=== PATIENT | female | born 1990 | race Two or more races ===

== ENCOUNTER 2024-11-08 21:46 | Emergency (ER) | payer BC, SELFPAY ==
--- NOTE | 2024-11-08 21:48 | EKG_ITS ---
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
[2024-11-08 22:04] VITALS: BP 161/104; BP 169/118; PULSE 104; RESP 16; TEMP 37.2; O2SAT 98; BMI 48.6
--- NOTE | 2024-11-08 22:28 | XR_ITS ---
Examination: PA chest single view TECHNIQUE: Upright PA chest single view Date and time: November 08, 2024 10:34 PM Comparison April 25, 2009 INDICATIONS: Chest pain beginning 2 hours ago. FINDINGS: Normal heart size The lungs are clear. The osseous structures are intact IMPRESSION: No active disease
--- NOTE | 2024-11-08 22:28 | XR_ITS ---
Examination: CT brain head without contrast. 2-D sagittal coronal reconstructions Date and time of exam:November 08, 2024, 10:56 PM INDICATIONS: Slurred speech and dizziness weakness and numbness in the left arm beginning 3 days ago CTDI: vol (mGy):54.3 DLP: (mGycm):1022 Technique: Multiple CT axial sections of the brain have been obtained, 5 mm slice thickness. Contrast has not been administered. 2-D sagittal, coronal reconstructions have been obtained Low dose protocols were performed. One or more of the following dose reduction techniques were used; automated exposure control, adjustment of the mA and/or KV according to patient size, use of iterative reconstruction technique. Findings: No significant ventricular enlargement. Intra-axial or extra-axial hemorrhage density is not seen. No mass effect or midline shift Basal cisterns are not remarkable. Fourth ventricle is midline. Cranial vault intact. Impression: Negative for acute hemorrhage, mass effect or midline shift As clinically warranted, brain MRI follow-up would best assess for demyelinating disease, acute ischemic change
--- NOTE | 2024-11-08 22:33 | PC.NURSE ---
stroke consult Case # [id number]
--- NOTE | 2024-11-08 22:35 | PD.EDDIZZY ---
ED Dizzyness RME/HPI General Chief Complaint: Dizziness Stated Complaint: DIZZINESS Time Seen by Provider: 11/08/24 22:27 Arrival date/time: 11/08/24 21:46 34F with no significant PMH presents to ED 2 days of dizziness w/o trigger. Patient also had 2 episodes of slurred speech where she tried to get the words out, but she couldn't. This started around 10 AM yesterday. Patient also had some CP that resolved, as well as L-sided facial numbness. Patient denies anxiety and drug/alcohol use. No recent surgery. Limitations: no limitations Related Data Previous Rx's ?Medication ?Instructions ?Recorded tramadol 50 mg tablet (Ultram) 1 - 2 tab PO Q6HR PRN PAIN #20 tabs 02/18/17 Allergies Allergy/AdvReac Type Severity Reaction Status Date / Time No Known Allergies Allergy Verified 11/08/24 21:48 Review of Systems Review of Systems Systems Reviewed: All systems reviewed, normal except as documented Constitutional Constitutional: Reports system reviewed and no additional complaints, except as documented, Denies fever(s) and Denies headache(s) ENT Ears, Nose, Mouth, and Throat: Reports as per HPI, Denies disequilibrium, Denies headache(s), Reports vertigo and Reports other (slurred speech) Cardiovascular Cardiovascular: Reports system reviewed and no additional complaints, except as documented, Denies chest pain and Denies dyspnea Respiratory Respiratory: Reports system reviewed and no additional complaints, except as documented, Denies cough and Denies dyspnea Gastrointestinal Gastrointestinal: Reports system reviewed and no additional complaints, except as documented, Denies abdominal pain, Denies nausea and Denies vomiting Musculoskeletal Musculoskeletal: Reports numbness Neurologic Neurologic: Reports system reviewed and no additional complaints, except as documented, Reports as per HPI, Denies confusion, Denies disequilibrium, Denies headache(s), Reports numbness and Reports vertigo Psychiatric Psychiatric: Denies confusion Past Medical History Social History SMOKING STATUS: Never smoker ED Exam General Limitations: Present no limitations General appearance: Present alert and in no apparent distress Head Head exam: Present atraumatic Eye Eye exam: Present normal appearance, PERRL and EOMI ENT ENT exam: Present normal exam, normal oropharynx and mucous membranes moist Neck Neck exam: Present normal inspection, full ROM and trachea midline Chest Chest inspection: Present normal inspection and symmetric chest wall rise Respiratory Respiratory exam: Present normal lung sounds bilaterally Cardiovascular Cardiovascular exam: Present regular rate, normal rhythm and normal heart sounds Abdominal Exam Abdominal exam: Present soft and normal bowel sounds Extremities Exam Extremities exam: Present normal inspection and full ROM Back Exam Back exam: Present normal inspection and full ROM Neurological Exam Neurological exam: Present alert, oriented X3, CN II-XII intact and other (L facial reduced sensation) Psychiatric Psychiatric exam: Present normal affect and normal mood Skin Skin exam: Present warm, dry, intact and normal color Course Quality Measures none Orders Category Date Time Status EKG (ED ONLY) *Do not use* NOW Care 11/08/24 21:49 Completed Insert IV NOW Care 11/08/24 22:[address] head/brain wo con Stat Exams 11/08/24 22:28 Completed EKG (ED Only) Stat Exams 11/08/24 21:48 Draft XR chest 1V portable Stat Exams 11/08/24 22:28 Completed Alcohol, Blood Medical Stat Lab 11/08/24 22:32 Completed B-Type Natriuretic Peptide Stat Lab 11/08/24 22:32 Completed CBC Stat Lab 11/08/24 22:32 Completed Comprehensive Metabolic Panel Stat Lab 11/08/24 22:32 Completed Drug Screen,Urine Stat Lab 11/08/24 22:50 Completed HCG Qualitative,Urine Stat Lab 11/08/24 22:50 Completed Magnesium Stat Lab 11/08/24 22:32 Completed Partial Thromboplastin Time Stat Lab 11/08/24 22:32 Completed Prothrombin Time with INR Stat Lab 11/08/24 22:32 Completed Troponin I Stat Lab 11/08/24 22:32 Completed Troponin I Stat Lab 11/09/24 01:28 Ordered Urinalysis Stat Lab 11/08/24 22:50 Completed Vital Signs Vital signs: Vital Signs Temperature 98.9 F 11/08/24 22:04 Pulse Rate 104 H 11/08/24 22:04 Respiratory Rate 16 11/08/24 22:04 Blood Pressure 169/118 H 11/08/24 22:04 Pulse Oximetry (%) 98 11/08/24 22:04 Oxygen Delivery Method Room Air 11/08/24 22:04 O2 at 98% on RA and WNLs Dizziness MDM Narrative MDM Narrative:: 34F with no significant PMH presents to ED 2 days of dizziness w/o trigger. Patient also had 2 episodes of slurred speech where she tried to get the words out, but she couldn't. This started around 10 AM yesterday. Patient also had some CP that resolved, as well as L-sided facial numbness. Patient denies anxiety and drug/alcohol use. No recent surgery. Physical exam reveals normal pupil response and EOM. CN II-XII grossly intact. Some L-sided facial numbness. Gait normal. Normal WOB. Patient is afebrile, calm, and alert. Speech currently intact. EKG is NSR. CT unremarkable. Lab work unremarkable. Spoke to IM Resident reporting to Dr. Casarez, who states patient can have MRI done in ED and does not need to be admitted. Patient AMA'd because she didn't want to wait for MRI (per neurologist recommendations) and will return in AM. Patient data External records reviewed:: [facility] previous records Clinical information provided by:: patient Social determinants that could affect healthcare access:: none Patient has the following chronic illnesses:: none How is presenting disease/condition affected by chronic disease/condition?: no chronic disease Evaluation data The following diagnostics were reviewed and interpreted by me:: lab results, radiology exam(s) and EKG tracing(s) Lab and/or radiology exams considered but not ordered:: ordered Interpretation Summary: above Medications / Prescriptions Medications or Prescriptions considered but not ordered:: not ordered Medication administrations:: n/a Consultations Consultation(s) initiated? (list below): Yes Diagnosis Dizziness Differential Diagnosis: adverse reaction to drug, benign paroxysmal positional vertigo, orthostatic hypotension, vertebral basilar insufficiency, cerebrovascular accident, acute vestibular neuronitis and transient cerebral ischemia Most likely diagnosis given after review of the tests above:: Dizziness Admission Indicated Admission indicated?: not indicated Admission Request Was there a request for admission?: Yes Admission Attestation Admission request attestation: Discussed case with [Dr. Casarez] from Hospitalist service regarding admission. Discussed patients ED course, exam findings, labs, and radiology results. The Hospitalist [declines] to accept the patient for admission. Disposition Plan Disposition Plan: other (specify) (AMA'd) Discharge Plan Plan Patient Disposition: Left Against Medical Advice Prescriptions/Referrals Prescriptions/Med Rec: No Action tramadol [Ultram] 50 MG tablet 1 - 2 tab PO Q6HR PRN (Reason: PAIN) Qty: 20 0RF Rx Instructions: FOR PAIN, NOT TO EXCEED 8 TABS IN 24 HRS Referrals: Aleida Mendez MD [Primary Care Provider] - In 1 week Problem List Clinical Impression: Dizziness Patient/Caregiver Discharge Instructions Print Language: Wolof PA/CLOTH DOUBLING MACHINE OPERATOR Supervising Physician PA/CLOTH DOUBLING MACHINE OPERATOR Supervising Physician: Dr. Berrios
[2024-11-08 22:48] LABS: Basophils % (Auto) 0 % (0-2.5); Eosinophils # (Auto) 0.2 Thou/mm3 (0.0-0.5); Eosinophils % (Auto) 2 % (0-10); Hematocrit 43.4 % (36.0-46.0); Hemoglobin 15.2 g/dL (12.0-16.0); Immature Granulocytes % (Auto) 0 % (0-0); Immature Granulocytes Auto 0.05 Thou/mm3 (0.00-0.00); Lymphocytes # (Auto) 3.2 Thou/mm3 (1.0-4.8); Lymphocytes % (Auto) 24 % (10-50); Mean Corpuscular Hemoglobin 29.7 pg (25.0-35.0); Mean Corpuscular Volume 85 fL (80-100); Monocytes # (Auto) 0.9 Thou/mm3 (0.0-0.8); Monocytes % (Auto) 7 % (0-12); Neutrophils % (Auto) 68 % (37-80); Nucleated Red Blood Cell % 0 /100 WBC (0); Platelet Count 199 Thou/mm3 (140-440); RDW Standard Deviation 38.9 fL (36.4-46.3); Red Blood Count 5.11 Miln/mm3 (4.00-5.20); White Blood Count 13.4 Thou/mm3 (3.6-11.0)
[2024-11-08 22:57] LABS: INR 0.9 (0.9-1.3); Partial Thromboplastin Time 27.9 Seconds (22.0-36.0); Prothrombin Time 10.3 Seconds (9.0-12.2)
[2024-11-08 22:59] LABS: B-Type Natriuretic Peptide < 20 pg/mL (0-100)
[2024-11-08 23:02] LABS: Alanine Aminotransferase 30 U/L (10-49); Albumin, Serum 4.8 gm/dL (3.5-5.0); Albumin/Globulin Ratio 1.7 (1.2-2.2); Alcohol, Blood Medical < 3.0 mg/dL (0-10.0); Alkaline Phosphatase 73 U/L (46-116); Anion Gap 8 (7-16); Aspartate Amino Transferase 27 U/L (0-34); BUN/Creatinine Ratio 11 Ratio (12-20); Bilirubin,Total 0.5 mg/dL (0.3-1.2); Blood Urea Nitrogen 12 mg/dL (9-23); Calcium 9.8 mg/dL (8.3-10.6); Calcium (Corrected) 9.8 mg/dL (8.5-10.1); Carbon Dioxide 25.8 mMol/L (20.0-31.0); Chloride 104 mMol/L (98-107); Creatinine (Component) 1.1 mg/dL (0.6-1.3); Estimated Creatinine Clearance 92.5 mL/min (>60); Globulin 2.8 gm/dL (2.3-3.5); Glucose 113 mg/dL (74-106); Magnesium 1.9 mg/dL (1.6-2.6); Osmolality,Calculated 276 (275-295); Potassium 4.7 mMol/L (3.4-5.1); Sodium 138 mMol/L (136-145); Total Protein 7.6 gm/dL (5.7-8.2); Troponin I < 0.002 ng/mL (0.0-0.045); eGFR > 60 See Note
[2024-11-08 23:11] LABS: Collection Type, Urine Clean Catch
[2024-11-08 23:15] LABS: HCG Qualitative,Urine Negative
[2024-11-08 23:18] LABS: Amorphous Crystals,Urine Present (Absent); Bacteria,Urine Rare; Bilirubin,Urine Negative (Negative); Blood,Urine Negative (Negative); Clarity,Urine Clear (Clear/Hazy); Color,Urine Colorless (Lt Yel-Yel); Glucose, Urine Negative (Negative); Ketones,Urine Negative (Negative); Leukocyte Esterase,Urine Positive (Negative); Nitrite,Urine Negative (Negative); Protein,Urine Negative (Neg - Trace); RBC,Urine 4 /hpf (0-3); Specific Gravity,Urine 1.008 (1.001-1.035); Squamous Epithelial Cell,Urine 3 /hpf (0-5); Urobilinogen,Urine Negative mg/dL (0.0-1.0); WBC,Urine 1 /hpf (0-5)
[2024-11-08 23:22] LABS: Amphetamine/Methamp Scrn,U Negative (Negative); Barbiturate Screen,Urine Negative (Negative); Benzodiazepines Screen,Urine Negative (Negative); Benzoylecgonine Screen, Ur Negative (Negative); Fentanyl Screen,Urine Negative (Negative); Opiate Screen,Urine Negative (Negative); THC Screen,Urine Negative (Negative)
--- NOTE | 2024-11-09 01:04 | PC.NURSE ---
TELE NEUROLOGIST TALKED TO PT.
[2024-11-09 01:07] VITALS: BP 156/103; PULSE 95; RESP 18; O2SAT 96
--- NOTE | 2024-11-09 01:25 | ESCONSULT_ITS ---
Tele Neuro Consultation Consultation Date 11/09/24 Most Recent Vital Signs Last Vital Signs Temp 98.9 F 11/08/24 22:04 Pulse 95 11/09/24 01:07 Resp 18 11/09/24 01:07 BP 156/103 H 11/09/24 01:07 Pulse Ox 96 11/09/24 01:07 O2 Del Method Room Air 11/09/24 01:07 Laboratory-Coagulation Panel PT 10.3 Seconds (9.0-12.2) 11/08/24 22:32 INR 0.9 (0.9-1.3) 11/08/24 22:32 APTT 27.9 Seconds (22.0-36.0) 11/08/24 22:32 Consultation Narrative [facility] TeleNeurology Consult Services Stat Consult Patient Name:???Aleida Cardona Date of :???1990 Identification Number:??? Date of Service:???11/08/2024 22:33:06 Diagnosis:?G43.819 - Other migraine, intractable, without status migrainosus Impression Aleida Croft is a 34 yo F who presents with dizziness. No focal deficits on exam. Head CT showed no acute intracranial pathology. Favoring migraine w/ aura but cannot exclude CLASS A LINEMAN inflammatory disease or ischemic stroke (both less likely). Recommend the following: - Compazine and benadryl q8 prn for GARCIA - MRI brain w/wo contrast - goal BP is normotension - if neuroimaging unremarkable, okay for discharge with Neurology follow up as outpatient Recommendations: Our recommendations are outlined below. Nursing Recommendations :IV Fluids, avoid dextrose containing fluids, Maintain euglycemia Neuro checks q4 hrs x 24 hrs and then per shift Head of bed 30 degrees Continue with Telemetry Disposition :Neurology will follow Advanced Imaging: Advanced Imaging Deferred because: Non-disabling symptoms as verified by the patient; no cortical signs so not consistent with LVO Metrics: Dispatch Time: 11/08/2024 22:33:06 Callback Response Time: 11/08/2024 22:33:29 Primary Provider Notified of Diagnostic Impression and Management Plan on: 11/09/2024 01:12:44 CT HEAD: I personally reviewed all the CT images that were available to me and it sh owed:?no acute intracranial pathology Imagingno acute intracranial pathology Chief Complaint: dizziness History of Present Illness:Patient is a 34 year old Female. Aleida Croft is a 34 yo F who presents with dizziness. Patient reports intermittent lightheadedness for past few days. Also reports b/l blurry vision, left face and arm numbness, and intermittent slurred speech. Of note, has 5 out of 10 headache. Denies photophobia. Denies history of similar episodes in the past. Past Medical History: ?There is no history of Hypertension Medications: No Anticoagulant use? No Antiplatelet use Reviewed EMR for current medications Allergies:? Reviewed Social History: Smoking: No Alcohol Use: No Drug Use: No Family History: There is no family history of premature cerebrovascular disease pertinent to this consultation ROS : 14 Points Review of Systems was performed and was negative except mentioned in HPI. Past Surgical History: There Is No Surgical History Contributory To Today?s Visit Examination: BP(141/77),?Pulse(72),?Blood Glucose(113) 1A: Level of Consciousness - Alert; keenly responsive?+ 0 1B: Ask Month and Age - Both Questions Right?+ 0 1C: Blink Eyes & Squeeze Hands - Performs Both Tasks?+ 0 2: Test Horizontal Extraocular Movements - Normal?+ 0 3: Test Visual Lai - No Visual Loss?+ 0 4: Test Facial Palsy (Use Grimace if Obtunded) - Normal symmetry?+ 0 5A: Test Left Arm Motor Drift - No Drift for 10 Seconds?+ 0 5B: Test Right Arm Motor Drift - No Drift for 10 Seconds?+ 0 6A: Test Left Leg Motor Drift - No Drift for 5 Seconds?+ 0 6B: Test Right Leg Motor Drift - No Drift for 5 Seconds?+ 0 7: Test Limb Ataxia (FNF/Heel-Mckeon) - No Ataxia?+ 0 8: Test Sensation - Mild-Moderate Loss: Less Sharp/More Dull?+ 1 9: Test Language/Aphasia - Normal; No aphasia?+ 0 10: Test Dysarthria - Normal?+ 0 11: Test Extinction/Inattention - No abnormality?+ 0 NIHSS Score:?1 Spoke with :?ED provider This consult was conducted in real time using interactive audio and video technology. Patient was informed of the technology being used for this visit and agreed to proceed. Patient located in hospital and provider located at home/office setting. Patient is being evaluated for possible acute neurologic impairment and high probability of imminent or life - threatening deterioration.I spent total of 35 minutes providing care to this patient, including time for face to face visit via telemedicine, review of medical records, imaging studies and discussion of findings with providers, the patient and / or family. Dr Scott Phan [facility] For Inpatient follow-up with [facility] physician please call [facility] at . As we are not an outpatient service for any post hospital discharge needs please contact the hospital for assistance. If you have any questions for the [facility] physicians or need to reconsult for clinical or diagnostic changes please contact us via [facility] at .
== END 2024-11-09 01:46 | disposition left against medical advice (07) ==
LOC: SERX 22:43
PROVIDERS: Physician Assistant; Emergency Provider Emergency Medicine; PCP Family Medicine
DX: R42 Dizziness and giddiness (principal)
CPT/HCPCS: 36415; 70450; 71045; 80053; 80307; 80320; 81001; 81025; 83735; 83880; 84484; 85025; 85610; 85730; 93005; 99284; G0480

== ENCOUNTER 2024-11-09 07:51 | Emergency (ER) | payer OTHER, SELFPAY ==
--- NOTE | 2024-11-09 | XR_ITS ---
Examination: MRI brain without intravenous contrast. Date and time of exam: November 09, 2024 0918 hours INDICATIONS: Dizziness episodes with headaches beginning 4 days ago Technique: Multiple axial and sagittal images of the brain obtained. Siemens high-resolution 1.5 Emerald short bore scanners utilized. Sagittal sections, T1-weighted, TR 500, TE 14, are performed. Axial sections proton-density and T2-weighted have been obtained. Inversion recovery axial images, TR 9, 260, TE 111, TI 2500. Diffusion weighted images, axial sections, TR 4800, TE 128, B value 1000 Axial sections, ADC map, TR 4800, TE 128 Findings: Enlargement of the sella turcica is not present. The optic chiasm and infundibular are not remarkable. Prepontine and interpeduncular cisterns are not enlarged. There is no localized enlargement of the medulla or magan. Fourth ventricle and cerebellar tonsils appear normal in position. No subacute area of hemorrhage density is seen. Mass in the cerebellopontine angle region is not evident. Globes symmetrical. Orbital musculature including medial lateral rectus muscles do not exhibit abnormality. Diffusion-weighted images demonstrate no focus of restricted diffusion. Increased white matter signal not seen Mass effect upon the ventricular system is not identified. Impression: Negative for acute hemorrhage mass effect or midline shift No acute infarct No MR findings diagnostic for demyelinating disease Mild chronic ethmoid sinusitis
[2024-11-09 07:53] VITALS: BMI 48.6
[2024-11-09 08:03] VITALS: BP 156/95; PULSE 74; RESP 16; TEMP 37.1; O2SAT 98
[2024-11-09 09:23] LABS: Free T4 (Free Thyroxine) 1.19 ng/dL (0.89-1.76); Thyroid Stimulating Hormone 2.35 uIU/mL (0.55-4.78); Troponin I < 0.002 ng/mL (0.0-0.045)
--- NOTE | 2024-11-09 10:28 | EDNOTE_ITS ---
Neuro Symptoms Deficit-RME/HPI General Chief Complaint: Neuro Symptoms/Deficit Stated Complaint: DIZZINESS SINCE SUN, SENSATIONS DIFFENTIATE Time Seen by Provider: 11/09/24 08:13 Arrival date/time: 11/09/24 07:51 34-year-old female presents the emergency department today for complaints of dizziness since Thursday patient was evaluated last night teleneuro was consulted recommended the patient have an MRI Limitations: no limitations Related Data Previous Rx's ?Medication ?Instructions ?Recorded tramadol 50 mg tablet (Ultram) 1 - 2 tab PO Q6HR PRN P AIN #20 tabs 02/18/17 Allergies Allergy/AdvReac Type Severity Reaction Status Date / Time No Known Allergies Allergy Verified 11/09/24 07:55 Review of Systems Review of Systems Systems Reviewed: All systems reviewed, normal except as documented Constitutional Constitutional: Reports system reviewed and no additional complaints, except as documented, Denies fever(s) and Reports headache(s) Eyes Eyes: Reports system reviewed and no additional complaints, except as documented and Denies blurry vision ENT Ears, Nose, Mouth, and Throat: Reports system reviewed and no additional complaints, except as documented, Reports headache(s), Denies nasal congestion, Denies nasal discharge and Reports vertigo Cardiovascular Cardiovascular: Reports system reviewed and no additional complaints, except as documented, Denies chest pain and Denies dyspnea Respiratory Respiratory: Reports system reviewed and no additional complaints, except as documented, Denies chest congestion, Denies cough and Denies dyspnea Gastrointestinal Gastrointestinal: Reports system reviewed and no additional complaints, except as documented and Denies abdominal pain Integumentary/Breasts Skin/Breast: Reports system reviewed and no additional complaints, except as documented and Denies rash Neurologic Neurologic: Reports system reviewed and no additional complaints, except as documented, Reports as per HPI, Reports headache(s) and Reports vertigo Past Medical History Past Medical History RESPIRATORY: Negative Respiratory Disorders Social History SMOKING STATUS: Never smoker ED Exam General Limitations: Present no limitations General appearance: Present alert and in no apparent distress Head Head exam: Present atraumatic, normocephalic and normal inspection Eye Eye exam: Present normal appearance, PERRL and EOMI; Absent conjunctival injection ENT ENT exam: Present normal exam, normal oropharynx and mucous membranes moist Neck Neck exam: Present normal inspection, full ROM and trachea midline Chest Chest inspection: Present normal inspection and symmetric chest wall rise Respiratory Respiratory exam: Present normal lung sounds bilaterally; Absent respiratory distress Cardiovascular Cardiovascular exam: Present regular rate, normal rhythm and normal heart sounds Abdominal Exam Abdominal exam: Present soft and normal bowel sounds Extremities Exam Extremities exam: Present normal inspection and full ROM Back Exam Back exam: Present normal inspection and full ROM Neurological Exam Neurological exam: Present alert, oriented X3, CN II-XII intact, normal gait and reflexes normal; Absent motor sensory deficit Psychiatric Psychiatric exam: Present normal affect and normal mood Skin Skin exam: Present warm, dry, intact and normal color Course Quality Measures none Orders Category Date Time Status MRI Screening NOW Care 11/09/24 08:13 Completed Consult to Neurology / Tele-Neurology Stat Cons 11/09/24 10:31 Active MR head/brain wo con Stat Exams 11/09/24 Completed A1C [Glycohemoglobin w (eAG)] Stat Lab 11/09/24 08:34 Received Free T4 (Free Thyroxine) Stat Lab 11/09/24 08:34 Completed TSH [Thyroid Stimulating Hormone] Stat Lab 11/09/24 08:34 Completed Troponin I Stat Lab 11/09/24 08:34 Completed Vitamin B12 Stat Lab 11/09/24 08:34 Received Vitamin D 25 Hydroxy Total Stat Lab 11/09/24 08:34 Received Vital Signs Vital signs: Vital Signs Temperature 98.8 F 11/09/24 08:03 Pulse Rate 74 11/09/24 08:03 Respiratory Rate 16 11/09/24 08:03 Blood Pressure 156/95 H 11/09/24 08:03 Pulse Oximetry (%) 98 11/09/24 08:03 Oxygen Delivery Method Room Air 11/09/24 08:03 O2 saturation 98% on room air within normal limits Neuro Symptoms / Deficit MDM Narrative MDM Narrative:: 34-year-old female presents the emergency department today for complaints of dizziness since Thursday patient was evaluated last night teleneuro was consulted recommended the patient have an MRI On exam patient well-appearing patient is not appear ill or toxic patient walks steady gait has no abnormal neurological findings Lab work and imaging obtained no acute emergent findings noted Patient had full cardiac workup yesterday repeated troponin today which came back negative thyroid is normal as well Consultation: I spoke with Dr. mccall and she had a FaceTime call with the patient Patient discharged home in no distress to follow-up with primary care doctor in the next 24 to 48 hours and for any worsening symptoms to return to the ER immediately Patient data External records reviewed:: [facility] previous records Clinical information provided by:: patient Social determinants that could affect healthcare access:: none Patient has the following chronic illnesses:: None How is presenting disease/condition affected by chronic disease/condition?: no chronic disease Evaluation data The following diagnostics were reviewed and interpreted by me:: lab results and radiology exam(s) Lab and/or radiology exams considered but not ordered:: Labs radiology obtain Interpretation Summary: Reviewed by me Medications / Prescriptions Medications or Prescriptions considered but not ordered:: No meds Medication administrations:: No meds Consultations Consultation(s) initiated? (list below): Yes Consultation #1 (Physician, Specialty, Details): Dr Mccall Diagnosis Neuro Differential Diagnosis: subarachnoid hemorrhage, peripheral neuropathy, transient cerebral ischemia and other (Headache, vertigo) Most likely diagnosis given after review of the tests above:: Vertigo Admission Indicated Admission indicated?: not indicated Admission Request Was there a request for admission?: No Disposition Plan Disposition Plan: Discharge Discharge Attestation Discharge Attestation: The patient and all family members were given an opportunity to ask questions and understood the discharge instructions. Discharge instructions specifically effects, indications for sooner follow up or return to the emergency department, and the expected course of current diagnosis. Patient condition: Stable Discharge Plan Plan Patient Disposition: HOME (Self Care) Discharge Disposition comment: Stable Prescriptions/Referrals Prescriptions/Med Rec: No Action tramadol [Ultram] 50 MG tablet 1 - 2 tab PO Q6HR PRN (Reason: PAIN) Qty: 20 0RF Rx Instructions: FOR PAIN, NOT TO EXCEED 8 TABS IN 24 HRS Referrals: Aleida Mendez MD [Primary Care Provider] - 11/10/24 Problem List Clinical Impression: Vertigo Patient/Caregiver Discharge Instructions Education Materials: ED Dizziness, Uncertain Cause Additional Instructions: Please follow up with your primary care doctor in the next 24-48hrs for any worsening symptoms return here immediately Please request referral from your PCP to Dr. Chavis Print Language: Polish Stand Alone Forms: [facility]arly[employer] Award Info., Patient Portal Info Letter PA/FLOORING SALES MANAGER Supervising Physician PA/FLOORING SALES MANAGER Supervising Physician: dr sanchez
[2024-11-09 11:15] LABS: Glucose Estimated Average 111 mg/dL (80-131); Hemoglobin A1C 5.5 % Hgb (4.8-6.0)
[2024-11-09 11:27] LABS: Vitamin B12 299 pg/mL (211-911); Vitamin D 25 Hydroxy Total 11.1 ng/mL (7.3-40.2)
--- NOTE | 2024-11-09 17:24 | PD.NEUROCONS ---
History of Present Illness Data of Consult Primary Care Provider: Aleida Mendez MD Consult Narrative cc:: cc: Meds Home Medications and Allergies Allergies Allergy/AdvReac Type Severity Reaction Status Date / Time No Known Allergies Allergy Verified 11/09/24 07:55 Exam - Neurology Vital Signs Temp Pulse Resp BP Pulse Ox O2 Del Method 98.8 F 74 16 156/95 H 98 Room Air 11/09/24 08:03 11/09/24 08:03 11/09/24 08:03 11/09/24 08:03 11/09/24 08:03 11/09/24 08:03 Results Labs Labs: Cardiac Enzymes 11/09/24 Range/Units 08:34 Troponin I < 0.002 (0.0-0.045) ng/mL
== END 2024-11-09 11:33 | disposition home or self-care (01) ==
PROVIDERS: Nurse Practitioner Primary Care; Emergency Provider Emergency Medicine; PCP Family Medicine
DX: R42 Dizziness and giddiness (principal); J32.2 Chronic ethmoidal sinusitis
CPT/HCPCS: 36415; 70551; 82306; 82607; 83036; 84439; 84443; 84484; 99284

== ENCOUNTER → 2025-04-06 | Outpatient (CLI) | payer OTHER, SELFPAY ==
[2025-04-06 08:10] LABS: Collection Type, Urine Clean Catch
[2025-04-06 08:39] LABS: Basophils # (Auto) 0.0 Thou/mm3 (0.0-0.2); Basophils % (Auto) 0 % (0-2.5); Eosinophils # (Auto) 0.3 Thou/mm3 (0.0-0.5); Eosinophils % (Auto) 3 % (0-10); Hematocrit 42.6 % (36.0-46.0); Hemoglobin 14.2 g/dL (12.0-16.0); Immature Granulocytes Auto 0.03 Thou/mm3 (0.00-0.00); Lymphocytes # (Auto) 2.4 Thou/mm3 (1.0-4.8); Lymphocytes % (Auto) 28 % (10-50); Mean Corpuscular HGB Conc 33.3 g/dl (31.0-37.0); Mean Corpuscular Hemoglobin 29.6 pg (25.0-35.0); Mean Corpuscular Volume 89 fL (80-100); Monocytes # (Auto) 0.5 Thou/mm3 (0.0-0.8); Monocytes % (Auto) 6 % (0-12); Neutrophils # (Auto) 5.3 Thou/mm3 (1.8-7.7); Neutrophils % (Auto) 62 % (37-80); Nucleated Red Blood Cell # 0.00 Thou/mm3 (0.00-0.00); Nucleated Red Blood Cell % 0 /100 WBC (0); Platelet Count 224 Thou/mm3 (140-440); RDW Standard Deviation 41.1 fL (36.4-46.3); Red Blood Count 4.79 Miln/mm3 (4.00-5.20); White Blood Count 8.6 Thou/mm3 (3.6-11.0)
[2025-04-06 08:47] LABS: Bilirubin,Urine Negative (Negative); Blood,Urine Negative (Negative); Clarity,Urine Clear (Clear/Hazy); Color,Urine Lt-Yellow (Lt Yel-Yel); Glucose, Urine Negative (Negative); Ketones,Urine Negative (Negative); Leukocyte Esterase,Urine Negative (Negative); Nitrite,Urine Negative (Negative); PH,Urine 6.5 (5.0-7.0); Protein,Urine Negative (Neg - Trace); RBC,Urine 1 /hpf (0-3); Specific Gravity,Urine 1.011 (1.001-1.035); Squamous Epithelial Cell,Urine 1 /hpf (0-5); Urobilinogen,Urine Negative mg/dL (0.0-1.0); WBC,Urine 1 /hpf (0-5)
[2025-04-06 08:50] LABS: Glucose Estimated Average 117 mg/dL (80-131); Hemoglobin A1C 5.7 % Hgb (4.8-6.0)
[2025-04-06 08:58] LABS: Alanine Aminotransferase 29 U/L (10-49); Albumin, Serum 4.7 gm/dL (3.5-5.0); Albumin/Globulin Ratio 2.0 (1.2-2.2); Alkaline Phosphatase 64 U/L (46-116); Anion Gap 8 (7-16); Aspartate Amino Transferase 23 U/L (0-34); BUN/Creatinine Ratio 11 Ratio (12-20); Bilirubin,Total 0.5 mg/dL (0.3-1.2); Blood Urea Nitrogen 10 mg/dL (9-23); Calcium 9.3 mg/dL (8.3-10.6); Calcium (Corrected) 9.3 mg/dL (8.5-10.1); Carbon Dioxide 28.2 mMol/L (20.0-31.0); Cardiac Risk Estimate 3.1 RATIO (3.7-5.6); Chloride 107 mMol/L (98-107); Cholesterol 147 mg/dL (132-200); Creatinine (Component) 0.9 mg/dL (0.6-1.3); Free T4 (Free Thyroxine) 1.31 ng/dL (0.89-1.76); Globulin 2.3 gm/dL (2.3-3.5); Glucose 129 mg/dL (74-106); HDL Cholesterol 47 mg/dL (40-60); LDL Cholesterol,Calculated 78 mg/dL (0-130); Osmolality,Calculated 285 (275-295); Potassium 4.4 mMol/L (3.4-5.1); Sodium 143 mMol/L (136-145); Thyroid Stimulating Hormone 1.58 uIU/mL (0.55-4.78); Total Protein 7.0 gm/dL (5.7-8.2); Triglycerides 109 mg/dL (30-150); eGFR > 60 See Note
== END | disposition home or self-care (01) ==
LOC: COPL 06:55
PROVIDERS: PCP Family Medicine; Referring Provider Family Medicine; Visit Provider Family Medicine
DX: Z00.00 Encounter for general adult medical examination without abnormal findings (principal); E66.813 Obesity, class 3; R03.0 Elevated blood-pressure reading, without diagnosis of hypertension; Z83.3 Family history of diabetes mellitus
CPT/HCPCS: 36415; 80053; 80061; 81001; 83036; 84439; 84443; 85025